=== PATIENT | female | born 1985 | race Two or more races ===

== ENCOUNTER 2017-09-30 07:04 | Day surgery (SDC) | payer OTHER ==
[~2017-09-30] VITALS: Ht 170.2 cm; Wt 94.0 kg
[~2017-09-30 07:04] MED LIST: BACLOFEN20 MG PO; BUSPAR7.5 MG PO; ENDOCET 5-3251 EACH PO; IBUPROFEN800 MG PO; INDOCIN25 MG PO; LYRICA75 MG PO; Motrin PO; NAPROSYN500 MG PO; PRENATAL GUMMI1 EACH PO; ROBITUSSIN AC,T10 ML PO; TYLENOL WITH C1 EACH PO; ULTRAM50 MG PO; VALIUM2 MG PO; VENTOLIN HFA18 GM IH; VOLTAREN75 MG PO; ZITHROMAX Z-PA250 MG PO; ZOFRAN8 MG PO
[2017-09-30 07:46] VITALS: BP 122/87
[2017-09-30] MEDS ORDERED: BENADRYL50 MG PO (08:27)
[2017-09-30] MEDS ORDERED: PERCOCET 5/31 TABLET PO (08:27)
[2017-09-30] MEDS ORDERED: IBUPROFEN800 MG PO (08:28)
[2017-09-30 13:38] VITALS: BP 117/63
[2017-09-30 14:40] VITALS: BP 110/63
== END 2017-09-30 15:35 | disposition home or self-care (01) ==
LOC: SDC 07:04
PROC: 0UT94ZZ Resection of Uterus, Percutaneous Endoscopic Approach (ICD-10-PCS; principal; 2017-09-30)
PROC: 0TJ98ZZ Inspection of Ureter, Via Natural or Artificial Opening Endoscopic (ICD-10-PCS; principal; 2017-09-30)
PROC: 0UT74ZZ Resection of Bilateral Fallopian Tubes, Percutaneous Endoscopic Approach (ICD-10-PCS; principal; 2017-09-30)
PROC: 0UQG4ZZ Repair Vagina, Percutaneous Endoscopic Approach (ICD-10-PCS; principal; 2017-09-30)
PROC: 0TN74ZZ Release Left Ureter, Percutaneous Endoscopic Approach (ICD-10-PCS; 2017-09-30)
PROC: 0TN64ZZ Release Right Ureter, Percutaneous Endoscopic Approach (ICD-10-PCS; 2017-09-30)
DX: N92.0 Excessive and frequent menstruation with regular cycle (principal); N94.6 Dysmenorrhea, unspecified; N85.4 Malposition of uterus; N83.01 Follicular cyst of right ovary; K66.0 Peritoneal adhesions (postprocedural) (postinfection); R10.2 Pelvic and perineal pain; N72 Inflammatory disease of cervix uteri; N80.0 Endometriosis of uterus; F41.9 Anxiety disorder, unspecified; F32.9 Major depressive disorder, single episode, unspecified; Z88.5 Allergy status to narcotic agent; Z88.6 Allergy status to analgesic agent; Z91.041 Radiographic dye allergy status
CPT/HCPCS: 88307; J1100; J1170; J1580; J1885; J2001; J2250; J2405; J2710; J2795; J3010; J3475; J7050; J7120; Q0175; S0030

== ENCOUNTER 2017-11-13 09:54 | Emergency (ER) | payer OTHER ==
[~2017-11-13] VITALS: Ht 170.2 cm; Wt 92.5 kg
[~2017-11-13 09:54] MED LIST changes: +BENADRYL50 MG PO; +PERCOCET 5/31 TABLET PO
[2017-11-13 09:56] VITALS: BP 141/92
[2017-11-13 10:09] LABS: HEMATOCRIT 39.6 % (36.0-46.0); HEMOGLOBIN 13.4 G/DL (11.9-15.5); MCH 28.5 PG (29.0-34.0); MCHC 33.8 G/DL (30.0-36.0); MCV 84.3 FL (83-99); PLATELET COUNT 268 K/uL (156-360); RBC DIS.WIDTH-SD 36.6 % (39-53); WHITE BLOOD COUNT 4.1 K/uL (4.1-10.2)
[2017-11-13 10:16] LABS: ALBUMIN 4.5 g/dL (3.2-4.8)
[2017-11-13 10:17] LABS: CHLORIDE 104 mEq/L (99-109); POTASSIUM 3.4 mEq/L (3.7-5.4); SODIUM 137 mEq/L (136-147)
[2017-11-13 10:19] LABS: GLUCOSE 89 mg/dL (70-99); TOTAL PROTEIN 8.6 g/dL (6.4-8.3)
[2017-11-13 10:21] LABS: TOTAL BILIRUBIN 0.5 mg/dL (0.0-1.0)
[2017-11-13 10:22] LABS: ALKALINE PHOSPHATASE 83 IU/L (3-129)
[2017-11-13 10:23] LABS: CREATININE 0.8 mg/dL (0.6-1.3); GFR ESTIMATE (CALCULATED) > 59 mL/min/
[2017-11-13 10:24] LABS: AST (GOT) 18 IU/L (2-34); UREA NITROGEN (BUN) 10 mg/dL (9-23)
[2017-11-13 10:25] LABS: ALT (GPT) 16 IU/L (3-49)
[2017-11-13 10:32] LABS: QUANTITATIVE HCG < 4.0 MIU/ML
== END 2017-11-13 11:09 | disposition left against medical advice (07) ==
LOC: EME 09:54
DX: R11.10 Vomiting, unspecified (principal); R19.7 Diarrhea, unspecified; Z53.21 Procedure and treatment not carried out due to patient leaving prior to being seen by health care provider
CPT/HCPCS: 80053; 81003; 84702; 85027; 99281

== ENCOUNTER 2017-12-02 08:35 | Emergency (ER) | payer OTHER ==
[~2017-12-02] VITALS: Ht 170.2 cm; Wt 95.3 kg
[2017-12-02 10:34] VITALS: BP 122/84
== END 2017-12-02 10:34 | disposition home or self-care (01) ==
LOC: EME 08:35
PROVIDERS: Nurse Practitioner Family
DX: J10.1 Influenza due to other identified influenza virus with other respiratory manifestations (principal); F17.200 Nicotine dependence, unspecified, uncomplicated; Z91.041 Radiographic dye allergy status; Z88.6 Allergy status to analgesic agent; Z88.5 Allergy status to narcotic agent; Z88.1 Allergy status to other antibiotic agents
CPT/HCPCS: 87502; 99281; 99284